=== PATIENT | female | born 1975 ===

== ENCOUNTER 2024-05-20 10:17 | Outpatient (REF) | payer OTHER, SELFPAY ==
--- NOTE | ~2024-05-20 | US_ITS ---
EXAMINATION: US RETROPERITONEUM HISTORY: LOWER ABD PAIN, R/O RENAL STONE TECHNIQUE: Real-time grayscale ultrasound imaging of the kidneys was performed and images were reviewed. COMPARISON: There are no prior studies for comparison. FINDINGS: Right kidney: The right kidney measures 11.5 x 5.3 x 5.8 cm. Renal parenchymal echotexture and thickness are normal. There are no masses. There is no hydronephrosis or renal calculi. Left Kidney: The left kidney measures 12.5 x 5.5 x 5.3 cm. Renal parenchymal echotexture and thickness are normal. There are no masses. There is no hydronephrosis or renal calculi. The urinary bladder is unremarkable. Bilateral ureteral jets are identified. Before voiding, the urinary bladder measured 7.8 x 6.8 x 5.8 cm, for an estimated volume of 162 mL. After voiding, the urinary bladder measured 3.7 x 3.0 x 4.9 cm, for an estimated volume of 28 mL. US/US retroperitoneal comp IMPRESSION: Unremarkable renal ultrasound. Post void bladder residual 28 mL. Electronically signed by: Eric Hanna MD 05/20/2024 11:36 AM EDT
== END 2024-05-20 10:18 | disposition home or self-care (01) ==
LOC: HO.UMASIMG 10:17
PROVIDERS: Visit Provider Emergency Medicine
DX: R10.30 Lower abdominal pain, unspecified (principal)
CPT/HCPCS: 76770

== ENCOUNTER → 2024-05-20 11:00 | Outpatient (BNV) | payer OTHER, SELFPAY | PROVIDERS: Visit Provider Radiology Diagnostic Radiology | DX: R10.30 Lower abdominal pain, unspecified (principal) | CPT/HCPCS: 76770 ==